=== PATIENT | female | born 1970 | race Caucasian/White ===

== ENCOUNTER 2024-12-27 12:37 | Emergency (ER) | payer OTHER, BC ==
[~2024-12-27] VITALS: Ht 167.6 cm; Wt 82.1 kg
[2024-12-27 13:15] VITALS: BP 139/100
[2024-12-27] MEDS ORDERED: BUPR75 (13:27)
[2024-12-27] MEDS ORDERED: Ketorolac Tromethamine 30mg Vial IM ONE (14:35)
== END 2024-12-27 15:22 | disposition home or self-care (01) ==
LOC: ER 12:37
DX: M25.532 Pain in left wrist (principal); M25.562 Pain in left knee; W18.30XA Fall on same level, unspecified, initial encounter; Z79.899 Other long term (current) drug therapy
CPT/HCPCS: 73110; 73590; 99284-25; J1885